=== PATIENT | male | born 1965 | race Caucasian/White ===

== ENCOUNTER → 2017-02-26 | Outpatient (REF) | LOC: WSOH 08:09 | DX: Z00.00 Encounter for general adult medical examination without abnormal findings (principal) ==

== ENCOUNTER → 2017-02-26 | Outpatient (REF) | LOC: WSOH 08:10 | DX: Z00.00 Encounter for general adult medical examination without abnormal findings (principal) ==

== ENCOUNTER → 2017-05-27 | Outpatient (REF) | LOC: WSOH 10:22 | DX: Z00.00 Encounter for general adult medical examination without abnormal findings (principal) | CPT/HCPCS: G0463 ==

== ENCOUNTER 2020-12-22 15:14 | Emergency (ER) | payer BC ==
[~2020-12-22] VITALS: Ht 180.3 cm; Wt 118.2 kg
[2020-12-22] MEDS ORDERED: ZITHROMAX Z PA250 MG PO (17:32)
[2020-12-22 17:53] VITALS: TEMP 99.2
[2020-12-22 18:54] VITALS: BP 140/76; PULSE 80
[2020-12-22] MEDS ORDERED: TESSALON PERLE200 MG PO (19:33)
== END 2020-12-22 18:54 | disposition home or self-care (01) ==
LOC: COL.ER 15:14
DX: U07.1 COVID-19 (principal)
CPT/HCPCS: J7030

== ENCOUNTER 2022-07-09 00:18 | Observation (INO) | payer BC ==
[~2022-07-09] VITALS: Ht 180.3 cm; Wt 114.0 kg
[~2022-07-09 00:18] MED LIST: TESSALON PERLE200 MG PO; ZITHROMAX Z PA250 MG PO
[2022-07-09] MEDS ORDERED: CRESTOR40 MG PO (00:33)
[2022-07-09] MEDS ORDERED: ZOLOFT 100MG100 MG PO (00:33)
[2022-07-09] MEDS ORDERED: GLUCOPHAGE1000 MG PO (00:33)
[2022-07-09 00:44] LABS: BASO # 0.1 K/mm3 (0.0-0.2); BASO % 0.7 % (0.0-2.0); EOS # 0.2 K/mm3 (0.0-0.7); EOS % 1.5 % (0.0-4.0); GRAN # 8.1 K/mm3 (1.4-6.5); GRAN % 69.1 % (42.2-75.2); HEMATOCRIT 40.8 % (42.0-52.0); HEMOGLOBIN 14.3 g/dl (13.5-18.0); LYMPH # 2.3 K/mm3 (1.2-3.4); LYMPH % 19.9 % (20.0-51.0); MEAN CELL VOLUME 86 fl (80.0-100.0); MEAN CORPUSCULAR HEMOGLOBIN 30 pg (27-31); MEAN CORPUSCULAR HGB CONC 35 g/dl (33.0-37.0); MEAN PLATELET VOLUME 10.1 fl (7.4-10.4); MONO % 8.5 % (1.7-9.3); PLATELET COUNT 193 K/mm3 (130-400); RED BLOOD COUNT 4.76 M/mm3 (4.20-5.60)
[2022-07-09 01:03] LABS: ALANINE AMINOTRANSFERASE 42 U/L (0-55); ALBUMIN 4.1 gm/dL (3.5-5.0); ALKALINE PHOSPHATASE 94 U/L (40-150); ANION GAP 13 mmol/L (7-16); AST,SGOT 24 U/L (5-34); BILIRUBIN,TOTAL 1.3 mg/dL (0.2-1.2); BLOOD UREA NITROGEN 16 mg/dL (8-26); CALCIUM 9.6 mg/dL (8.4-10.2); CARBON DIOXIDE 21 mmol/L (22-29); CHLORIDE 109 mmol/L (98-107); CREATININE, serum 1.17 mg/dL (0.72-1.25); GLUCOSE 255 mg/dL (70-99); LIPASE 12 U/L (8-78); POTASSIUM 3.8 mmol/L (3.5-4.5); SODIUM 143 mmol/L (136-145); TOTAL PROTEIN 7.2 gm/dL (6.2-8.1)
[2022-07-09 01:10] LABS: TROPONIN-I < 0.010 ng/mL (0.00-0.033)
[2022-07-09 03:01] LABS: COLLECTION METHOD CLEAN CATCH
[2022-07-09 03:05] VITALS: BP 122/62; PULSE 65
[2022-07-09 03:13] LABS: MUCOUS Present (NOT PRESENT); SQUAMOUS EPITHELIAL 0-2 /hpf (0-10); URINE BACTERIA None Seen /hpf (NONE SEEN); URINE RBC 0-2 /hpf (0-2)
[2022-07-09 03:14] LABS: URINE APPEARANCE Clear (CLEAR/HAZY); URINE BLOOD Negative (NEGATIVE); URINE COLOR Yellow (YELLOW); URINE GLUCOSE 2+ (NEGATIVE); URINE KETONE Negative (NEGATIVE); URINE NITRATE Negative (NEGATIVE); URINE PROTEIN(semi-quant) Negative (NEGATIVE); URINE UROBILINOGEN 0.2 (NEGATIVE)
[2022-07-09 03:15] LABS: PH 7.5 (5-8)
[2022-07-09 08:26] VITALS: BP 119/73; PULSE 54; TEMP 97.5
[2022-07-09 12:01] VITALS: BP 121/65; PULSE 54; TEMP 97.7
== END 2022-07-09 16:40 | disposition home or self-care (01) ==
LOC: COL.ER 00:18 → SURG 02:15
PROVIDERS: Nurse Practitioner Primary Care; ADMIT Surgery
DX: R10.10 Upper abdominal pain, unspecified (principal); E11.9 Type 2 diabetes mellitus without complications
CPT/HCPCS: G0378; J1885; J2405; J2543; J2550; J7030; Q9967